=== PATIENT | male | born 1985 | race African-American/Black ===

== ENCOUNTER 2016-12-17 14:57 | Inpatient (IN) | payer MEDICAID ==
[~2016-12-17] VITALS: Ht 177.8 cm; Wt 68.2 kg
[2016-12-17 16:48] LABS: BASOPHILS 0.2 % (0.0-2.0); EOSINOPHILS 1.4 % (0-7); HEMATOCRIT 41.8 % (42.0-54.0); HEMOGLOBIN 14.8 g/dL (13.5-17.5); IMMATURE GRANULOCYTES 0.3 % (0-5); LYMPHOCYTES 15.3 % (15-50); MCH 27.2 pg (26.0-34.0); MCHC 35.4 g/dL (31.0-37.0); MCV 76.7 fL (80.0-100.0); MEAN PLATELET VOLUME 9.7 fL (7.4-10.4); MONOCYTES 5.3 % (2-11); NEUTROPHILS 77.5 % (40-80); PLATELET COUNT 178 10x3/uL (130-400); RBC 5.45 10x6/uL (4.20-6.10); RDW 14.3 % (11.5-14.5); WBC 10.1 10x3/uL (4.8-10.8)
[2016-12-17 16:57] LABS: APTT 29.2 SECONDS (22.8-39.4); INR 1.02 (0.85-1.17); PROTIME 13.3 SECONDS (11.6-15.0)
[2016-12-17 17:16] LABS: ALBUMIN 4.3 g/dL (3.4-5.0); ANION GAP 13.5 mmol/L (8-16); BILIRUBIN - TOTAL 0.32 mg/dL (0.2-1.3); CALCIUM 8.7 mg/dL (8.5-10.1); CARBON DIOXIDE 28.4 mmol/L (21.0-32.0); CREATININE - SERUM 1.3 mg/dL (0.6-1.3); POTASSIUM - SERUM 3.9 mmol/L (3.5-5.1); PROTEIN - SERUM 7.1 g/dL (6.4-8.2)
--- NOTE | 2016-12-17 20:00 | NUR ---
PATIENT RECEIVED TO ROOM FROM OR VIA BED WITH HOSPITAL STAFF AND GUARD. AAOX4. RR EVEN AND UNLABORED. 0 S/S OF DISTRESS. DENIES PAIN AT THIS TIME. IV TO RIGHT FA PATENT WITH NO REDNESS OR SWELLINGDRESSING TO RIGHT ANKLE CDI WITH RODS IN PLACE. ELEVATED LEG ON PILLOWS. ORIENTED PATIENT TO ROOM AND CALL LIGHT. ALL VITALS WNL. B/A ON. CALL LIGHT WITHIN REACH.
[2016-12-17 20:09] VITALS: BP 144/86
[2016-12-17 23:12] VITALS: BP 144/86; Ht 177.8 cm; Wt 68.2 kg
--- NOTE | 2016-12-18 01:55 | NUR ---
POST OP VITALS COMPLETE AND WNL. PATIENT AWAKE WATCHING TV. STILL DENIES PAIN.
--- NOTE | 2016-12-18 07:30 | NUR ---
PATIENT RECEIVED ALERT IN BED. NO SIGNS OF DISTRESS NOTED. DENIES PAIN. GUARD AT BEDSIDE. SIDE RAILS UP X2. BED IN LOW POSITION. CALL LIGHT IN REACH.
[2016-12-18 08:32] VITALS: BP 111/63
--- NOTE | 2016-12-18 09:03 | NUR ---
PATIENT ALERT IN BED WITH GUARD PRESENT. NO SIGNS OF DISTRESS NOTED. A/O X4. DENIES PAIN. SIDE RAILS UP X2. BED IN LOW POSITION. CALL LIGHT IN REACH.
[2016-12-18 11:42] VITALS: BP 102/57
--- NOTE | 2016-12-18 11:45 | NUR ---
ALERT IN BED WATCHING TV. RESPIRATIONS EVEN AND UNLABORED. GUARD AT BEDSIDE. CALL LIGHT IN REACH. DENIES PAIN AND OTHER NEEDS. SIDE RAILS UP X2. BED IN LOW POSITION. CALL LIGHT IN REACH.
[2016-12-18 12:41] LABS: HEMATOCRIT 37.5 % (42.0-54.0); HEMOGLOBIN 13.3 g/dL (13.5-17.5); MCHC 35.5 g/dL (31.0-37.0); MCV 76.1 fL (80.0-100.0); MEAN PLATELET VOLUME 10.8 fL (7.4-10.4); RBC 4.93 10x6/uL (4.20-6.10); RDW 14.5 % (11.5-14.5)
[2016-12-18 12:47] LABS: WBC 13.4 10x3/uL (4.8-10.8)
--- NOTE | 2016-12-18 13:40 | NUR ---
REFUSES SCDS. INCENTIVE SPIROMETER AND USE PROVIDED. DEMONSTRATES CORRECT USE. SIDE RAILS UP X2. BED IN LOW POSITION. CALL LIGHT IN REACH. BED ALARM ON.
--- NOTE | 2016-12-18 13:42 | NUR ---
C/O PAIN 01/05. 1 TAB PERCOCET ADMINISTERED PER PRN ORDER. NO FURTHER NEEDS VOICED. SIDE RAILS UP X2. BED IN LOW POSITION. CALL LIGHT IN REACH. GUARD AT BEDSIDE.
--- NOTE | 2016-12-18 15:03 | NUR ---
ALERT IN BED. NO SIGNS OF DISTRESS NOTED. IV ABX INITIATED PER ORDER. GUARD AT BEDSIDE. SIDE RAILS UP X2. BED IN LOW POSITION. CALL LIGHT IN REACH.
[2016-12-18 15:15] VITALS: BP 114/67
--- NOTE | 2016-12-18 17:33 | NUR ---
ALERT IN BED EATING DINNER. TOLERATING WELL. C/O PAIN /. PERCOCET PER PRN ORDER. ICE PACK TO RIGHT LEG AND PROPPED ON PILLOW. DENIES NEEDS. GUARD AT BEDSIDE. SIDE RAILS UP X2. BED IN LOW POSITION. CALL LIGHT IN REACH.
--- NOTE | 2016-12-18 19:00 | NUR ---
PATIENT IN BED WATCHING TV. HOB 30 DEGREES. AAOX4. RR EVEN AND UNLABORED. 0 S/S OF DISTRESS. STATES PAIN IS A 7/10. IV TO RIGHT FA CDI. DRESSING TO RLE CDI. B/A ON. SRX2. BED LOW. CALL LIGHT WITHIN REACH.
--- NOTE | 2016-12-18 21:46 | NUR ---
PATIENT STATES THAT PAIN IS NOW AN 8/10. PERCOCET GIVEN PER ORDER. WILL REASSESS. NIGHTTIME MED GIVEN AND ASSESSMENT COMPLETE.
--- NOTE | 2016-12-18 22:30 | NUR ---
PATIENT STATES THAT PAIN IS UNRELIEVED WITH PILL. DIL[facility] [employer]ICAL DIAGNOSTIC RADIOGRAPHER INITIATED PER ORDER.
[2016-12-18 22:56] VITALS: BP 93/61
[2016-12-18 23:00] VITALS: BP 115/75
--- NOTE | 2016-12-19 03:00 | NUR ---
PATIENT SLEEPING WITH NO DISTRESS NOTED. GUARD AT BEDSIDE. CALL LIGHT WITHIN REACH.
[2016-12-19 07:38] VITALS: BP 141/88
--- NOTE | 2016-12-19 07:45 | NUR ---
PT ASSESSMENT COMPLETE AWAKE AND ALERT ORIENTED X 3 LUNGS CLAER BIALTERALLY NO ACUTE DISTRESS NTOED VOICES ALL NEEDS TO STAFF HAS GUARD AT SIDE PT IS IN CUSTODY OF DEPARTMENT OF CORRECTIONS HARDWARE NOTED TO RIGHT ANKLE.
--- NOTE | 2016-12-19 08:54 | NUR ---
PT SLEEPING WITHOUT DISTRESS.GUARD AT BEDSIDE.DENIES NEEDS.CALL LIGHT IN REACH
[2016-12-19] MEDS ORDERED: PERCOCET 10/3251 TA1 PO (09:38)
[2016-12-19] MEDS ORDERED: BACTRIM DS TABL1 TAB PO (09:39)
--- NOTE | 2016-12-19 12:32 | NUR ---
DRESSING CHANGE DONE AND DISCHARGE INSTRUCIONS GIVEN TO GUARD AND PT IN ROOM DISCHARGE MED RX GIVEN IN PACKET TO GUARD
--- NOTE | 2016-12-22 13:10 | OP ---
PATIENT NAME: BARRETT MANCUSO MEDICAL RECORD: [id number] :86 LOCATION:[facility] ADMISSION DATE:12/17/16 SURGEON: ALEX SHOOK MD DATE OF OPERATION: 12/17/2016 PREOPERATIVE DIAGNOSES: Grade IIA open distal tibia fracture with comminution intra-articular with a lateral fibular fracture grossly comminuted. POSTOPERATIVE DIAGNOSES: Grade IIA open distal tibia fracture with comminution intra-articular with a lateral fibular fracture grossly comminuted. PROCEDURES: 1. Birail external fixator application across the talotibial joint. 2. Debridement of open wounds to include skin, subcutaneous tissue, portions of fat, fascia, muscle and bone. SURGEON: Alex Shook MD. ANESTHESIA: General. INTRAOPERATIVE COMPLICATIONS: None. SUMMARY OF PATHOLOGIC FINDINGS: Consistent with the preoperative radiographs, the patient had a comminuted distal tibia fracture that extended into the intra-articular joint, not true Pilon fracture, but an open distal tibia fracture with fibula fracture as well. PROCEDURE IN DETAIL: Birail external fixator frame was laid down. Calcaneal transfixion pin was utilized as well as across the top of the foot through the first and second metatarsal bases. Two apex pins were placed into the tibia on either side. The frame was built with birails to the anterior and posterior part of the foot. This was taken and held in reduction on AP and lateral planes and then tensioned down to hold the reduction. At this point, a posterior U bar was placed to protect the posterior heel. Final radiographs were taken and submitted for radiologist review. At this point, the open wound itself was irrigated and all small fragments of bone were removed. It was closed loosely with 3-0 Prolene. Having completed this, sterile dressings were applied about the pins and the external fixator frame. The patient was awakened, taken to recovery room in stable condition. All final needle and sponge counts were correct. TRANSINT:[id number] Voice Confirmation ID: [id number] DOCUMENT ID: [id number] ALEX SHOOK MD at 1310 CC: [id number] DICTATION DATE: 12/18/16 0944 SANDWICH COUNTER ATTENDANT: 12/18/16 1049 DIS IN 12/19/16 [place] [address]
== END 2016-12-19 16:13 | DRG 494 ==
LOC: D.OPS 14:57 → D.ER 14:57 → EDSTATUS 19:08 → D.MS 19:51 → D.OPS 23:40 → D.MS 23:41
PROVIDERS: Emergency Medicine; ADMIT Orthopaedic Surgery
PROC: 0QSG05Z Reposition Right Tibia with External Fixation Device, Open Approach (ICD-10-PCS; principal; 2016-12-17 17:50)
PROC: 0QBJ0ZZ Excision of Right Fibula, Open Approach (ICD-10-PCS; principal; 2016-12-17 17:50)
PROC: 0QBG0ZZ Excision of Right Tibia, Open Approach (ICD-10-PCS; principal; 2016-12-17 17:50)
PROC: 0QSJ05Z Reposition Right Fibula with External Fixation Device, Open Approach (ICD-10-PCS; principal; 2016-12-17 17:50)
DX: S82.251B Displaced comminuted fracture of shaft of right tibia, initial encounter for open fracture type I or II (principal); S82.451B Displaced comminuted fracture of shaft of right fibula, initial encounter for open fracture type I or II; F17.200 Nicotine dependence, unspecified, uncomplicated

== ENCOUNTER 2017-01-29 05:29 | Day surgery (SDC) | payer OTHER ==
[~2017-01-29] VITALS: Ht 177.8 cm; Wt 60.3 kg
[~2017-01-29 05:29] MED LIST: BACTRIM DS TABL1 TAB PO; PERCOCET 10/3251 TA1 PO
[2017-01-29 07:42] VITALS: BP 127/66; Ht 177.8 cm; Wt 60.3 kg
[2017-01-29] MEDS ORDERED: HYDROCODONE-APA1 TAB PO (11:03)
--- NOTE | 2017-01-29 14:38 | OP ---
PATIENT NAME: BARRETT MANCUSO MEDICAL RECORD: [id number] :86 LOCATION:D.[facility] ADMISSION DATE: SURGEON: BOUCHRA NARVAEZ, ALEX MCALLISTER DATE OF OPERATION: 01/29/2017 PREOPERATIVE DIAGNOSES: Grade I open distal tibia and fibula fracture with prior placed external fixator with comminuted tibia and fibula fracture. POSTOPERATIVE DIAGNOSES: Grade I open distal tibia and fibula fracture with prior placed external fixator with comminuted tibia and fibula fracture. PROCEDURES: 1. Open reduction and internal fixation of the tibia. 2. Open reduction and internal fixation of the fibula. 3. Removal of previously placed external fixator. SURGEON: Alex Shook MD. ANESTHESIA: General. INTRAOPERATIVE COMPLICATIONS: Essentially none. SUMMARY OF PATHOLOGIC FINDINGS: Things were still maintained in a very nice pattern. The skin had improved dramatically making this much easier surgery. OPERATIVE SUMMARY IN DETAIL: After obtaining the appropriate preoperative orthopedic surgery consent as well as anesthetic consultation, evaluation and clearance, the patient was brought to the operating room and placed on the operating table in supine position. After general laryngeal mask was administered, tourniquet was placed about the proximal aspect of the right lower extremity. Right lower extremity was then prepped and draped in a routine sterile fashion. Serial and sequential removal of the Biomet frame was done followed by removal of the apex pins and the transverse fixing pins. The pin sites were locally cleaned. A medial-based incision was made from the medial malleolar tip above the fracture site. The ____ periarticular medial baseplate was utilized. It was contoured using the plate benders and then it was serially and sequentially affixed with a combination of both compression screws and locking screws. This was done under fluoroscopic guidance on AP and lateral planes. Having completed this, the attention was turned to the fibula. An incision was made from the fibular tip to above the fracture itself again and again under direct fluoroscopy, a lateral base fibular plate was placed and serial and sequential drill and fill using combination of both compression and locking screws. Final radiographs were submitted, AP, lateral and mortise for radiologist review. Wounds were copiously irrigated and closed using a #1 Vicryl, 2-0 Vicryl and skin maria victoria. Sterile dressings were applied. Tourniquet was deflated. The L&U splint was applied out to the tip of the toe to maintain the toe straightened. The patient was awakened, taken to recovery room in stable condition. All final needle and sponge counts were correct. TRANSINT:[id number] Voice Confirmation ID: [id number] DOCUMENT ID: [id number] OPERATIVE REPORT [id number] BARRETT MANCUSO MD, ALEX MCALLISTER at 1438 CC: [id number] DICTATION DATE: 01/29/17 1328 [facility] TECHNICIAN: 01/29/17 1421 [place] [id number] [place] [id number]
--- NOTE | 2017-01-29 16:02 | NUR ---
1245 IV DC WITH CATHER TIP INTACT
== END 2017-01-29 13:00 | disposition home or self-care (01) ==
LOC: D.OPS 05:29
DX: S82.301B Unspecified fracture of lower end of right tibia, initial encounter for open fracture type I or II (principal); S82.831B Other fracture of upper and lower end of right fibula, initial encounter for open fracture type I or II; Z01.812 Encounter for preprocedural laboratory examination

== ENCOUNTER 2019-05-19 05:18 | Day surgery (SDC) | payer OTHER ==
[~2019-05-19] VITALS: Ht 177.8 cm; Wt 68.0 kg
[~2019-05-19 05:18] MED LIST changes: +HYDROCODONE-APA1 TAB PO
[2019-05-19 06:38] VITALS: BP 134/76; Ht 177.8 cm; Wt 68.0 kg
[2019-05-19] MEDS ORDERED: HYDROCODON-ACE1 EA10 PO (07:55)
--- NOTE | 2019-05-19 11:00 | OP ---
PATIENT NAME: BARRETT MANCUSO MEDICAL RECORD: [id number] :86 LOCATION:[facility] ADMISSION DATE: SURGEON: ALEX SHOOK MD DATE OF OPERATION: 05/19/2019 PREOPERATIVE DIAGNOSIS: Symptomatic painful hardware of the right lower extremity. POSTOPERATIVE DIAGNOSIS: Symptomatic painful hardware of the right lower extremity. PROCEDURE: Removal of symptomatic hardware on the medial and lateral aspect of the ankle. SURGEON: Alex Shook MD HAIRSPRING II INSPECTOR: ASIM Richards INTRAOPERATIVE COMPLICATIONS: None. SUMMARY OF PATHOLOGIC FINDINGS: The patient had very thin skin and had substantial protrusion of the hardware, both on the lateral side as well as medial side obviating the need for removal. INDICATIONS: This prisoner had had a very nasty pilon fracture in the past and it has healed nicely. 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 OPERATIVE SUMMARY IN DETAIL: After obtaining the appropriate preoperative orthopedic surgery consent as well as anesthetic consultation, evaluation, and clearance, the patient was brought to the operating room and placed on the operating room table in supine position. After adequate general laryngeal mask airway was administered, tourniquet was placed on the proximal aspect of the right lower extremity. Right lower extremity was then prepped and draped in routine sterile fashion. Leg was elevated, exsanguinated, and tourniquet was inflated to 350 mmHg. Fluoroscopy was brought in for evaluation of the hardware. It had changed none from previous radiographs. Incision was made over the lateral aspect. This was taken down to the level of the plate. Serial and sequential removal of all screws was done followed by removal of the plate. Attention was then turned to the medial side. Again, the previously used incision was used down to the level of the plate. Under direct visualization, all screws were removed. At this point, fluoroscopy was brought in for evaluation and final radiographs in AP and lateral planes. Both incisions were irrigated and closed with 2-0 Vicryl followed by skin maria victoria done by ASIM Richards. Sterile dressings were applied. Tourniquet was deflated. The patient was awakened, taken to the recovery room in stable condition. All final needle and sponge counts were correct. TRANSINT:[id number] Voice Confirmation ID: [id number] DOCUMENT ID: [id number] OPERATIVE REPORT [id number] BARRETT MANCUSO MD, ALEX MCALLISTER at 1100 CC: [id number] DICTATION DATE: 05/19/19913 JOURNEYMAN TOOL AND DIE MAKER: 05/19/19926 [facility] [place] 05/19/19 [place] [id number] [place] [address]
== END 2019-05-19 10:39 | disposition home or self-care (01) ==
LOC: D.OPS 05:18
PROVIDERS: ATTEND Orthopaedic Surgery
DX: T84.84XA Pain due to internal orthopedic prosthetic devices, implants and grafts, initial encounter (principal); Z01.812 Encounter for preprocedural laboratory examination